=== PATIENT | female | born 1980 | race Caucasian/White ===

== ENCOUNTER 2016-06-22 05:21 | Emergency (ER) | payer MEDICAID ==
[2016-06-22] MEDS ORDERED: SODIUM CHLORIDE 0.9% 100 ML IV ONE (06:49)
[2016-06-22] MEDS ORDERED: CEFTRIAXONE 1 GM VIAL ONE (06:49)
[2016-06-22] MEDS ORDERED: SODIUM CHLORIDE 0.9% 1,000 ML ONE (06:49)
[2016-06-22] MEDS ORDERED: DIPHENHYDRAMINE 50 MG/ML VIAL ONE (08:09)
== END 2016-06-22 08:28 | disposition home or self-care (01) ==
LOC: EDBD 05:21 → ER 05:21
DX: O23.41 Unspecified infection of urinary tract in pregnancy, first trimester (principal); O23.591 Infection of other part of genital tract in pregnancy, first trimester; N76.0 Acute vaginitis; Z3A.09 9 weeks gestation of pregnancy
CPT/HCPCS: 36415; 76817; 80048; 81001; 84702; 85025; 86901; 87088; 87491; 87591; 87800; 96361; 96365; 96375